=== PATIENT | female | born 1950 | race African-American/Black ===

== ENCOUNTER 2017-06-29 17:51 | Inpatient (IN) | payer OTHER ==
[~2017-06-29] VITALS: Ht 165.1 cm; Wt 130.9 kg
[2017-06-29 19:07] LABS: EOSINOPHIL (%) 28.6 % (0-5); EOSINOPHIL COUNT 2.6 K/uL (0-0.3); HEMATOCRIT 43.5 % (36.0-46.0); IMMATURE GRANULOCYTE (%) 0.2 % (0.0-0.7); INSTRUMENT ABS NEUTROPHIL CT 4.4 K/uL; LYMPHOCYTE COUNT 1.5 K/uL (1.0-2.8); MCH 26.3 PG (29.0-34.0); MCHC 28.7 G/DL (30.0-36.0); MCV 91.6 FL (83-99); MEAN PLAT.VOLUME 10.9 uM^3 (9.5-12.4); MONOCYTE (%) 6.9 % (3-12); MONOCYTE COUNT 0.6 K/uL (0-0.8); NEUTROPHIL COUNT 4.4 K/uL (1.8-6.4); PLATELET COUNT 281 K/uL (156-360); RBC DIS.WIDTH-CV 15.3 % (11.8-14.6); RBC DIS.WIDTH-SD 51.8 % (39-53); RED BLOOD COUNT 4.75 M/uL (3.80-5.20); WHITE BLOOD COUNT 9.1 K/uL (4.1-10.2)
[2017-06-29 19:13] LABS: INTER. NORMALIZED RATIO 1.1; PROTHROMBIN TIME 12.2 SEC (10.2-12.9)
[2017-06-29 19:16] LABS: PTT 32.3 SEC (25-37)
[2017-06-29 19:21] LABS: CHLORIDE 100 mEq/L (99-109); POTASSIUM 4.4 mEq/L (3.7-5.4); SODIUM 142 mEq/L (136-147)
[2017-06-29 19:22] LABS: MAGNESIUM 1.9 mg/dL (1.3-2.7)
[2017-06-29 19:23] LABS: GLUCOSE 97 mg/dL (70-99)
[2017-06-29 19:24] LABS: ANION GAP 6 MEQ/L (2-14)
[2017-06-29 19:27] LABS: GFR ESTIMATE (CALCULATED) > 59 mL/min/; UREA NITROGEN (BUN) 13 mg/dL (9-23)
[2017-06-29 19:32] LABS: TROP-I INTERPRETATION NEGATIVE; TROPONIN-I < 0.01 ng/mL (0.0-0.30)
[2017-06-29] MEDS ORDERED: ASPIR 8181 M1 PO (23:04)
[2017-06-29] MEDS ORDERED: SIMVASTATIN40 MG PO (23:04)
[2017-06-29] MEDS ORDERED: METOLAZONE2.5 MG PO (23:05)
[2017-06-29] MEDS ORDERED: ALLOPURINOL100 MG PO (23:05)
[2017-06-29] MEDS ORDERED: FUROSEMIDE40 MG PO (23:05)
[2017-06-29] MEDS ORDERED: COZAAR50 MG PO (23:05)
[2017-06-29] MEDS ORDERED: AMLODIPINE BESY10 MG PO (23:05)
[2017-06-29] MEDS ORDERED: DULERA 200 MCG/13 GM IH (23:06)
[2017-06-29] MEDS ORDERED: ATENOLOL50 MG PO (23:06)
[2017-06-29] MEDS ORDERED: DUONEB 2.5-0.5 M3 ML AEROSOL (23:06)
[2017-06-30 01:38] VITALS: BP 175/77
[2017-06-30 04:06] VITALS: BP 182/83
[2017-06-30 06:55] LABS: EOSINOPHIL (%) 6.5 % (0-5); EOSINOPHIL COUNT 0.5 K/uL (0-0.3); HEMATOCRIT 43.3 % (36.0-46.0); IMMATURE GRANULOCYTE (%) 0.4 % (0.0-0.7); INSTRUMENT ABS NEUTROPHIL CT 5.4 K/uL; LYMPHOCYTE COUNT 1.1 K/uL (1.0-2.8); MCH 27.2 PG (29.0-34.0); MCHC 29.1 G/DL (30.0-36.0); MCV 93.5 FL (83-99); MEAN PLAT.VOLUME 11.2 uM^3 (9.5-12.4); MONOCYTE (%) 2.6 % (3-12); MONOCYTE COUNT 0.2 K/uL (0-0.8); NEUTROPHIL (%) 74.5 % (45-76); NEUTROPHIL COUNT 5.4 K/uL (1.8-6.4); PLATELET COUNT 255 K/uL (156-360); RBC DIS.WIDTH-CV 15.5 % (11.8-14.6); RBC DIS.WIDTH-SD 53.4 % (39-53); RED BLOOD COUNT 4.63 M/uL (3.80-5.20); WHITE BLOOD COUNT 7.3 K/uL (4.1-10.2)
[2017-06-30 07:18] LABS: ADD MIUA? NO; BILIRUBIN NEGATIVE; BLOOD NEGATIVE; COLOR YELLOW ((YELLOW)); GLUCOSE (STRIP) NEGATIVE; KETONES NEGATIVE; LEUKOCYTES NEGATIVE; NITRITE NEGATIVE; PROTEIN (STRIP) NEGATIVE; UCUL ADDED? NO
[2017-06-30 07:19] LABS: ANION GAP 7 MEQ/L (2-14); CHLORIDE 98 MEQ/L (99-109); GFR ESTIMATE (CALCULATED) > 59 mL/min/; GLUCOSE 130 mg/dL (70-99); POTASSIUM 4.8 MEQ/L (3.7-5.4); SAMPLE HEMOLYSIS CHECK 0; SAMPLE ICTERIC CHECK 0; SAMPLE LIPEMIA CHECK 0; SODIUM 141 MEQ/L (136-147); UREA NITROGEN (BUN) 14 mg/dL (9-23)
[2017-06-30 08:03] LABS: INTERNAL CONTROL VALID? YES
[2017-06-30 08:27] VITALS: BP 145/72
[2017-06-30 15:52] VITALS: BP 168/73
[2017-06-30 15:55] LABS: BASE EXCESS 13.3 mEq/L (-3 to +3); BICARBONATE 43.3 mEq/L (22-26); CARBOXY HGB 1.5 % (0-5); METHEMOGLOBIN 1.3 % (0-1.5); PCO2 84 mm Hg (35-45); PO2 59 mm Hg (80-100); pH 7.32 (7.35-7.45)
[2017-06-30 15:56] LABS: COMMENTS - BLOOD GASES A+C+; DEVICE NC; O2 FLOW 5 L/MIN; SITE RR; TOTAL RESP RATE 18 resp/min
[2017-06-30 19:45] VITALS: BP 172/77
[2017-06-30 23:27] VITALS: BP 179/79
[2017-07-01] VITALS (8 sets, daily range): BP systolic 133–168; BP diastolic 62–93
[2017-07-01 10:01] LABS: MCH 26.7 PG (29.0-34.0); MCHC 28.5 G/DL (30.0-36.0); MCV 93.4 FL (83-99); MEAN PLAT.VOLUME 11.5 uM^3 (9.5-12.4); PLATELET COUNT 266 K/uL (156-360); RBC DIS.WIDTH-CV 14.9 % (11.8-14.6); RBC DIS.WIDTH-SD 51.7 % (39-53); RED BLOOD COUNT 4.39 M/uL (3.80-5.20); WHITE BLOOD COUNT 10.7 K/uL (4.1-10.2)
[2017-07-01 10:13] LABS: BASE EXCESS 13.8 mEq/L (-3 to +3); BICARBONATE 43.8 mEq/L (22-26); CARBOXY HGB 1.2 % (0-5); COMMENTS - BLOOD GASES A+C+; DEVICE NC; METHEMOGLOBIN 1.2 % (0-1.5); O2 FLOW 5 L/MIN; PCO2 87 mm Hg (35-45); PO2 57 mm Hg (80-100); SITE RR; pH 7.31 (7.35-7.45)
[2017-07-01 10:16] LABS: ANION GAP 6 MEQ/L (2-14); CHLORIDE 98 MEQ/L (99-109); GFR ESTIMATE (CALCULATED) > 59 mL/min/; POTASSIUM 4.5 MEQ/L (3.7-5.4); SAMPLE HEMOLYSIS CHECK 0; SAMPLE ICTERIC CHECK 0; SAMPLE LIPEMIA CHECK 0; SODIUM 142 MEQ/L (136-147)
[2017-07-01 10:20] LABS: GLUCOSE 236 mg/dL (70-99); UREA NITROGEN (BUN) 23 mg/dL (9-23)
[2017-07-01 13:41] LABS: METH RESISTANT S AUREUS PCR NEGATIVE (NEGATIVE)
[2017-07-01 13:42] LABS: PROBE CHECK PASS; SPECIMEN PROCESSING CONTROL PASS
[2017-07-01 18:43] LABS: INFLUENZA A VIRAL ANTIGEN NEGATIVE; INFLUENZA B VIRAL ANTIGEN NEGATIVE
[2017-07-02] VITALS (10 sets, daily range): BP systolic 118–168; BP diastolic 59–88
[2017-07-03] VITALS (12 sets, daily range): BP systolic 110–153; BP diastolic 60–82
[2017-07-03 05:32] LABS: EOSINOPHIL (%) 0 % (0-5); HEMATOCRIT 40.6 % (36.0-46.0); IMMATURE GRANULOCYTE (%) 0.5 % (0.0-0.7); IMMATURE GRANULOCYTE COUNT 0.1 K/uL; MCH 26.6 PG (29.0-34.0); MCHC 29.3 G/DL (30.0-36.0); MCV 90.8 FL (83-99); MEAN PLAT.VOLUME 11.6 uM^3 (9.5-12.4); MONOCYTE (%) 3.8 % (3-12); MONOCYTE COUNT 0.5 K/uL (0-0.8); NEUTROPHIL (%) 87.6 % (45-76); PLATELET COUNT 294 K/uL (156-360); RBC DIS.WIDTH-CV 15.1 % (11.8-14.6); RBC DIS.WIDTH-SD 50.5 % (39-53); RED BLOOD COUNT 4.47 M/uL (3.80-5.20); WHITE BLOOD COUNT 12.5 K/uL (4.1-10.2)
[2017-07-03 06:01] LABS: ANION GAP 6 MEQ/L (2-14); CHLORIDE 99 MEQ/L (99-109); GFR ESTIMATE (CALCULATED) > 59 mL/min/; GLUCOSE 154 mg/dL (70-99); POTASSIUM 4.7 MEQ/L (3.7-5.4); SAMPLE HEMOLYSIS CHECK 0; SAMPLE ICTERIC CHECK 0; SAMPLE LIPEMIA CHECK 0; SODIUM 142 MEQ/L (136-147)
[2017-07-03 06:02] LABS: UREA NITROGEN (BUN) 35 mg/dL (9-23)
[2017-07-04] VITALS: BP 125/77
[2017-07-04 04:00] VITALS: BP 143/66
[2017-07-04 05:07] LABS: EOSINOPHIL (%) 0 % (0-5); HEMATOCRIT 40.9 % (36.0-46.0); IMMATURE GRANULOCYTE (%) 1.6 % (0.0-0.7); IMMATURE GRANULOCYTE COUNT 0.2 K/uL; INSTRUMENT ABS NEUTROPHIL CT 9.9 K/uL; MCH 27.2 PG (29.0-34.0); MCHC 30.1 G/DL (30.0-36.0); MCV 90.5 FL (83-99); MEAN PLAT.VOLUME 11.7 uM^3 (9.5-12.4); MONOCYTE (%) 4.2 % (3-12); MONOCYTE COUNT 0.5 K/uL (0-0.8); NEUTROPHIL (%) 85.4 % (45-76); NEUTROPHIL COUNT 9.9 K/uL (1.8-6.4); PLATELET COUNT 308 K/uL (156-360); RBC DIS.WIDTH-CV 15.6 % (11.8-14.6); RED BLOOD COUNT 4.52 M/uL (3.80-5.20); WHITE BLOOD COUNT 11.5 K/uL (4.1-10.2)
[2017-07-04 05:37] LABS: ANION GAP 5 MEQ/L (2-14); CHLORIDE 98 MEQ/L (99-109); GFR ESTIMATE (CALCULATED) > 59 mL/min/; GLUCOSE 228 mg/dL (70-99); POTASSIUM 4.7 MEQ/L (3.7-5.4); SAMPLE HEMOLYSIS CHECK 0; SAMPLE ICTERIC CHECK 0; SAMPLE LIPEMIA CHECK 0; SODIUM 141 MEQ/L (136-147); UREA NITROGEN (BUN) 41 mg/dL (9-23)
[2017-07-04 08:00] VITALS: BP 138/69
[2017-07-04 10:00] VITALS: BP 148/75
[2017-07-04 12:00] VITALS: BP 136/70
[2017-07-04] MEDS ORDERED: PROVENTIL HFA6.7 GM IH (12:40)
[2017-07-04] MEDS ORDERED: METOPROLOL SUCC25 MG PO (13:36)
[2017-07-04] MEDS ORDERED: FLONASE16 G1 BOTH NARES (13:36)
[2017-07-04] MEDS ORDERED: SPIRIVA RESPIMAT4 GM IH (13:36)
[2017-07-04] MEDS ORDERED: PREDNISONE10 M1 PO (13:36)
[2017-07-04] MEDS ORDERED: DULERA 200 MCG/13 GM IH (13:36)
[2017-07-04] MEDS ORDERED: CEFDINIR300 MG PO (13:36)
[2017-07-04] MEDS ORDERED: SPIRONOLACTONE50 MG PO (13:36)
[2017-07-04 14:00] VITALS: BP 136/69
== END 2017-07-04 17:04 | disposition home or self-care (01) | DRG 190 ==
LOC: EME 17:51 → 4WEST 23:40 → EDOF 23:40 → 3EAST 23:40 → ENRESERV 23:42 → 3EAST 06-30 01:31 → ENRESERV 07-01 10:36 → 4WEST 07-01 10:46 → ENRESERV 07-03 17:54 → CANRESERV 07-03 18:15 → ENRESERV 07-03 18:31 → CANRESERV 07-03 22:42 → ENRESERV 07-03 22:42 → 4WEST 07-04 17:04
PROVIDERS: Emergency Medicine; Hospitalist; Internal Medicine Critical Care Medicine; Physician Assistant
PROC: 5A09357 Assistance with Respiratory Ventilation, Less than 24 Consecutive Hours, Continuous Positive Airway Pressure (ICD-10-PCS; principal; 2017-06-30)
DX: J44.0 Chronic obstructive pulmonary disease with (acute) lower respiratory infection (principal); J18.9 Pneumonia, unspecified organism; J96.22 Acute and chronic respiratory failure with hypercapnia; J96.21 Acute and chronic respiratory failure with hypoxia; J44.1 Chronic obstructive pulmonary disease with (acute) exacerbation; E87.2 Acidosis; I11.0 Hypertensive heart disease with heart failure; I50.9 Heart failure, unspecified; G47.33 Obstructive sleep apnea (adult) (pediatric); E66.01 Morbid (severe) obesity due to excess calories; E78.5 Hyperlipidemia, unspecified; I27.20 Pulmonary hypertension, unspecified; M10.9 Gout, unspecified; Z99.81 Dependence on supplemental oxygen; Z87.891 Personal history of nicotine dependence; Z91.19 Patient's noncompliance with other medical treatment and regimen; Z68.42 Body mass index [BMI] 45.0-49.9, adult; I69.354 Hemiplegia and hemiparesis following cerebral infarction affecting left non-dominant side; Z85.41 Personal history of malignant neoplasm of cervix uteri; Z79.82 Long term (current) use of aspirin
CPT/HCPCS: 36600; 71010; 71275; 80048; 81003; 82803; 83605; 83735; 83880; 84484; 85025; 85027; 85610; 85730; 87040; 87070; 87205; 87449; 87502; 87641; 93005; 93306; 93970; 94010; 94640; 94640 76; 94660; 94799; 97530 GO; 97530 GP; 99202; 99281; 99285; J0456; J0696; J1644; J2920; J2930; J7050